=== PATIENT | female | born 1990 | race Caucasian/White ===

== ENCOUNTER → 2016-11-17 | Outpatient (CLI) | payer OTHER | LOC: M LAB 12:10 | PROVIDERS: ATTEND Specialist | DX: N91.2 Amenorrhea, unspecified (principal) ==

== ENCOUNTER → 2016-12-06 | Outpatient (CLI) | payer OTHER ==
[2016-12-06 13:04] LABS: BASO % 0.5 % (0.0-1.0); EOS # 0.1 K/mm3 (0.0-0.50); LARGE UNSTAINED CELL # 0.2 K/mm3 (0.0-0.4); LARGE UNSTAINED CELL % 3.8 % (0.0-4.0); LYMPH # 1.3 K/mm3 (1.5-6.5); LYMPH % 21.1 % (24.0-44.0); MEAN CORPUSCULAR HEMOGLOBIN 29.5 pg (27.0-33.0); MEAN CORPUSCULAR HGB CONC 34.8 g/dl (32.0-36.5); MEAN CORPUSCULAR VOLUME 84.7 fl (80.0-96.0); MONO # 0.3 K/mm3 (0.0-0.8); MONO % 5.7 % (0.0-5.0); NEUTROPHILS # 4.1 K/mm3 (1.8-7.7); NEUTROPHILS % 67.9 % (36.0-66.0); PLATELET COUNT, AUTOMATED 215 k/mm3 (150-450); RED CELL DISTRIBUTION WIDTH 11.9 % (11.5-14.5)
[2016-12-07 11:41] LABS: HBsAg Prenatal NEGATIVE (NEGATIVE)
== END ==
LOC: M LAB 12:15
PROVIDERS: ATTEND Specialist
DX: Z36 Encounter for antenatal screening of mother (principal)

== ENCOUNTER → 2017-02-22 | Outpatient (CLI) | payer OTHER | LOC: M LAB 10:13 | PROVIDERS: ATTEND Advanced Practice Midwife | DX: Z34.80 Encounter for supervision of other normal pregnancy, unspecified trimester (principal); Z3A.00 Weeks of gestation of pregnancy not specified ==

== ENCOUNTER → 2017-03-15 | Outpatient (REF) | payer OTHER | LOC: M LAB REF 12:38 | DX: J02.9 Acute pharyngitis, unspecified (principal) ==

== ENCOUNTER → 2017-04-27 | Outpatient (CLI) | payer OTHER ==
[2017-04-27 12:03] LABS: HEMOGLOBIN 11.1 g/dl (12.0-16.0); MEAN CORPUSCULAR HEMOGLOBIN 29.9 pg (27.0-33.0); MEAN CORPUSCULAR HGB CONC 33.6 g/dl (32.0-36.5); MEAN CORPUSCULAR VOLUME 88.9 fl (80.0-96.0); PLATELET COUNT, AUTOMATED 200 10^3/uL (150-450); RED BLOOD COUNT 3.71 10^6/uL (4.00-5.40); RED CELL DISTRIBUTION WIDTH 12.8 % (11.5-14.5); WHITE BLOOD COUNT 10.5 10^3/uL (4.0-10.0)
[2017-04-27 12:27] LABS: GLUCOSE CHALLENGE TEST 1 HOUR 96 MG/DL (LESS THAN 140)
== END ==
LOC: M LAB 10:06
DX: Z34.82 Encounter for supervision of other normal pregnancy, second trimester (principal)

== ENCOUNTER → 2017-07-07 | Outpatient (REF) | payer OTHER | LOC: M LAB REF 16:48 | DX: Z34.83 Encounter for supervision of other normal pregnancy, third trimester (principal) ==

== ENCOUNTER → 2017-10-06 | Outpatient (REF) | payer OTHER | LOC: M LAB REF 14:30 | DX: Z12.4 Encounter for screening for malignant neoplasm of cervix (principal) ==

== ENCOUNTER → 2018-10-15 | Outpatient (REF) | payer OTHER ==
[~2018-10-15] MED LIST: COLA100C5 PO; FOLI800C PO; IBUP-1114 PO; MAPA500T2 PO; PRENTAB9 PO; VALT500T PO
== END ==
LOC: M LAB REF 17:23
PROVIDERS: ATTEND Advanced Practice Midwife
DX: Z12.4 Encounter for screening for malignant neoplasm of cervix (principal)

== ENCOUNTER → 2018-12-07 | Outpatient (CLI) | payer OTHER ==
[2018-12-07 13:37] LABS: BASO % 0.3 % (0.0-1.0); EOS % 0.6 % (0.0-3.0); HEMATOCRIT 36.4 % (36.0-47.0); HEMOGLOBIN 12.3 g/dl (12.0-15.5); LYMPH # 1.4 10^3/uL (1.5-5.0); LYMPH % 20.9 % (24.0-44.0); MEAN CORPUSCULAR HEMOGLOBIN 29.1 pg (27.0-33.0); MEAN CORPUSCULAR HGB CONC 33.8 g/dl (32.0-36.5); MEAN CORPUSCULAR VOLUME 86.3 fl (80.0-96.0); MONO # 0.5 10^3/uL (0.0-0.8); MONO % 7.3 % (0.0-5.0); NEUTROPHILS # 4.8 10^3/uL (1.5-8.5); NEUTROPHILS % 70.6 % (36.0-66.0); PLATELET COUNT, AUTOMATED 217 10^3/uL (150-450); RED BLOOD COUNT 4.22 10^6/uL (4.00-5.40); WHITE BLOOD COUNT 6.8 10^3/uL (4.0-10.0)
[2018-12-07 15:37] LABS: CHLAMYDIA DNA AMPLIFICATION NEGATIVE (NEGATIVE); GC DNA AMPLIFICATION NEGATIVE (NEGATIVE)
[2018-12-07 21:22] LABS: HEPATITIS C VIRUS ABY INDEX 2.1 INDEX (<0.8); HIV 1&2 SCREEN CENTAUR NEGATIVE (NEGATIVE); RUBELLA IgG QUALITATIVE EQUIVOCAL (IMMUNE)
== END ==
LOC: M SMT 09:40
PROVIDERS: ATTEND Advanced Practice Midwife
DX: Z34.81 Encounter for supervision of other normal pregnancy, first trimester (principal)

== ENCOUNTER → 2019-02-04 | Outpatient (REF) | payer OTHER | LOC: M WUC 10:59 | PROVIDERS: ATTEND Advanced Practice Midwife | DX: Z34.80 Encounter for supervision of other normal pregnancy, unspecified trimester (principal); Z3A.09 9 weeks gestation of pregnancy ==

== ENCOUNTER → 2019-03-29 | Outpatient (CLI) | payer OTHER ==
[2019-03-29 10:43] LABS: HEMOGLOBIN 11.1 g/dl (12.0-15.5); MEAN CORPUSCULAR HEMOGLOBIN 29.3 pg (27.0-33.0); MEAN CORPUSCULAR HGB CONC 32.6 g/dl (32.0-36.5); MEAN CORPUSCULAR VOLUME 89.7 fl (80.0-96.0); PLATELET COUNT, AUTOMATED 184 10^3/uL (150-450); RED BLOOD COUNT 3.79 10^6/uL (4.00-5.40); WHITE BLOOD COUNT 8.5 10^3/uL (4.0-10.0)
== END ==
LOC: M PLALAB 08:37
PROVIDERS: ATTEND Obstetrics & Gynecology
DX: Z36.89 Encounter for other specified antenatal screening (principal)

== ENCOUNTER → 2019-05-27 | Outpatient (REF) | payer OTHER | LOC: M SFHCWAGY 17:00 | PROVIDERS: ATTEND Advanced Practice Midwife | DX: Z36.85 Encounter for antenatal screening for Streptococcus B (principal) ==

== ENCOUNTER 2019-06-17 20:20 | Inpatient (IN) | payer OTHER ==
[~2019-06-17] VITALS: Ht 167.6 cm; Wt 67.0 kg
[2019-06-17] MEDS ORDERED: LR 1,000 ML IV SCH (20:51)
[2019-06-17] MEDS ORDERED: PENICILLIN G POTASSIUM IV 5 MU in D5W MINI-BAG PLUS 100 ML IV STA (20:51)
[2019-06-17 21:20] LABS: HEMATOCRIT 33.1 % (36.0-47.0); HEMOGLOBIN 11.7 g/dl (12.0-15.5); MEAN CORPUSCULAR HEMOGLOBIN 30.6 pg (27.0-33.0); MEAN CORPUSCULAR HGB CONC 35.3 g/dl (32.0-36.5); MEAN CORPUSCULAR VOLUME 86.6 fl (80.0-96.0); PLATELET COUNT, AUTOMATED 192 10^3/uL (150-450); RED BLOOD COUNT 3.82 10^6/uL (4.00-5.40); WHITE BLOOD COUNT 18.5 10^3/uL (4.0-10.0)
[2019-06-17 21:22] VITALS: BP 108/72
--- NOTE | 2019-06-17 21:55 | HPE ---
DATE OF ADMISSION: 06/17/2019 Kaylan is a 28-year-old, 2, para 1-0-0-1 at 38-4/7 weeks gestation, estimated date of confinement (EDC) of 06/27/2019 based on last menstrual period and confirmed by first trimester ultrasound. She presents to labor and delivery today with report of onset of uncomfortable contractions at approximately 1500 hours that have become progressively more painful and closer together. She does report some scant bloody show. Denies leakage of fluid. The fetus has been active. Her care was initiated at [facility] in the first trimester. 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 OBSTETRICAL HISTORY: July 2017: 39 weeks gestation, 7 pounds 5 ounce male, spontaneous vaginal delivery. No complications. OBSTETRIC LABS: O+, antibody screen negative. Pap normal, rubella equivocal, VDRL nonreactive. Urine culture no growth. Hepatitis B surface antigen negative, HIV negative. Hepatitis C antibody nonreactive. Gonorrhea and chlamydia negative. The quad screen was negative for aneuploidy. Diabetic gestational screening was 85 and her GBS is positive. PAST MEDICAL HISTORY: Anemia. HSV. depression and anxiety. Childhood varicella. SURGERIES: [place] tooth extraction. FAMILY HISTORY: Atrial fibrillation, polycythemia and congestive heart failure. SOCIAL HISTORY: The patient is . She is employed as a nurse. She is a nonsmoker. She denies alcohol and drug use. A history of HSV. No history of abuse - physical, sexual or emotional. ALLERGIES: No known drug allergies. CURRENT MEDICATIONS: vitamins and Valtrex 500 mg by mouth twice a day. OBJECTIVE: Temperature 97.6, respirations 18, blood pressure not recorded. She is alert and oriented times three. She does appear mildly uncomfortable with her contractions. She is focusing and deep breathing. heart rate is 150 with moderate variability, positive accelerations, negative decelerations. Contractions are every 2 minutes. They do palpate moderate. Sterile vaginal exam: 3 cm dilated, 80% effaced, zero station, mid position, and positive show. Her abdomen is gravid, cephalic presentation. Estimated weight 7 pounds. ASSESSMENT: Intrauterine at 38-4/7 weeks. heart rate category one, labor. PLAN: Admit the patient to labor and delivery. Saline lock. Start IV antibiotics for GBS prophylaxis. Routine labs. Out of bed ad yaneth. Clear liquid diet. At this time, the patient plans on coping with her labor physiologically. May consider artificial rupture of membranes (AROM) and IV Pitocin for labor augmentation if needed. I do anticipate labor progress and a spontaneous vaginal delivery. The patient has been verbally consented for emergency surgery and blood products if they are necessary.
[2019-06-18] MEDS ORDERED: OXYTOCIN 30 UNITS IN 0.9% NaCl 500ML IV BAG (J2590) As Ordered ONE ×2 (00:12→01:25)
[2019-06-18] MEDS ORDERED: PENICILLIN G POTASSIUM IV 2.5 MU in IV 1 EA IV SCH (01:00)
[2019-06-18 01:45] VITALS: BP 118/76
[2019-06-18] MEDS ORDERED: RHOGAM 300 MCG (1500 IU) INJ (J2790) IM SCH (02:00)
[2019-06-18] MEDS ORDERED: MEASLES,MUMPS,RUBELLA VACCINE INJ (MMR-II) (90707) SC SCH (02:00)
[2019-06-18] MEDS ORDERED: DOCUSATE SODIUM 100 MG CAP PO PRN (02:00)
[2019-06-18] MEDS ORDERED: METHYLERGONOVINE MALEATE 0.2 MG TAB PO PRN (02:00)
[2019-06-18] MEDS ORDERED: DIBUCAINE 1% OINTMENT 30GM TOP PRN (02:00)
[2019-06-18] MEDS ORDERED: ACETAMINOPHEN TAB 650MG DOSE (2X325MG) PO PRN (02:00)
[2019-06-18] MEDS ORDERED: IBUPROFEN 600 MG TAB PO PRN (02:00)
[2019-06-18 02:12] VITALS: BP 114/70
[2019-06-18] MEDS ORDERED: OXYTOCIN DRIP 30 UNITS in IV 1 EA IV ONE (02:15)
[2019-06-18 02:56] VITALS: BP 108/66
[2019-06-18 03:35] VITALS: BP 109/59
[2019-06-18 05:44] VITALS: BP 115/68
--- NOTE | 2019-06-18 06:22 | DN ---
DATE: 06/18/2019 Kaylan is a 28-year-old, 2, para 2-0-0-2 now, who was admitted to labor and delivery in active labor. Her labor progressed under its own power. She coped with her labor physiologically. She had assisted rupture of membranes for a moderate amount of clear odorless fluid at 0117. She reached complete dilation at 0127. She pushed to a normal spontaneous vaginal delivery of a live male in right occiput anterior (LUCERO) position with restitution to right occiput transverse (ROT) position at 0129. There was no nuchal cord. The shoulders delivered spontaneously and the corpus immediately followed. The was placed on the maternal abdomen crying and active. His mouth and nares were bulb suctioned. The cord was clamped times two once pulsations ceased and was cut by the father of the baby under my direction. Cord blood was obtained. Spontaneous expulsion of an intact placenta with three-vessel cord by Newman mechanism was at 0136. Uterine hemostasis achieved with IV Pitocin rapid infusion and uterine fundal massage. Estimated blood loss 200 mL. Perineum and vagina inspected and noted to be intact. The male weighed 6 pounds 8 ounces, 2940 grams, 8 and 9. Mom is going to breastfeed her son and the family have named him Sang. At the close of delivery, lap counts and instrument counts were correct and verified.
[2019-06-18] MEDS: ACETAMINOPHEN 500 MG TAB PO PRN ×2 (07:46→17:22)
[2019-06-18] MEDS: PRENATAL VITAMINS CHEWABLE TABLET PO SCH (10:40)
[2019-06-18] MEDS: SERTRALINE HCL 25 MG TABLET PO SCH (10:40)
[2019-06-18] MEDS: IBUPROFEN 800 MG TAB PO PRN ×2 (10:41→18:15)
[2019-06-18 18:35] VITALS: BP 124/75
[2019-06-19] MEDS: IBUPROFEN 800 MG TAB PO PRN (02:42)
[2019-06-19 06:00] VITALS: BP 119/66
[2019-06-19] MEDS ORDERED: SERT25TA21 PO (08:32)
[2019-06-19] MEDS: PRENATAL VITAMINS CHEWABLE TABLET PO SCH (08:54)
[2019-06-19] MEDS: SERTRALINE HCL 25 MG TABLET PO SCH (08:54)
[2019-06-19] MEDS: ACETAMINOPHEN 500 MG TAB PO PRN (08:59)
== END 2019-06-19 12:15 | disposition home or self-care (01) | DRG 807 ==
LOC: M LDO 20:20 → M LDI 20:47 → M OBS 06-18 03:27
PROVIDERS: ADMIT Advanced Practice Midwife; ATTEND Advanced Practice Midwife
PROC: 10E0XZZ Delivery of Products of Conception, External Approach (ICD-10-PCS; principal; 2019-06-18)
PROC: 10907ZC Drainage of Amniotic Fluid, Therapeutic from Products of Conception, Via Natural or Artificial Opening (ICD-10-PCS; 2019-06-18)
DX: O99.284 Endocrine, nutritional and metabolic diseases complicating childbirth (principal); Z37.0 Single live birth; Z3A.38 38 weeks gestation of pregnancy

== ENCOUNTER → 2020-01-21 | Outpatient (CLI) | payer OTHER ==
[~2020-01-21] MED LIST changes: +SERT25TA21 PO
== END ==
LOC: M LABSMTC 10:47
PROVIDERS: ATTEND Pediatrics
DX: Z20.828 Contact with and (suspected) exposure to other viral communicable diseases (principal)

== ENCOUNTER → 2020-03-06 | Outpatient (CLI) | payer SELFPAY | LOC: M LABSMTC 11:01 | PROVIDERS: ATTEND Pediatrics | DX: Z20.828 Contact with and (suspected) exposure to other viral communicable diseases (principal) ==

== ENCOUNTER → 2020-04-06 | Outpatient (REF) | payer OTHER ==
[2020-04-06 12:43] LABS: HEMATOCRIT 38.4 % (36.0-47.0); HEMOGLOBIN 12.6 g/dl (12.0-15.5); MEAN CORPUSCULAR HEMOGLOBIN 28.6 pg (27.0-33.0); MEAN CORPUSCULAR HGB CONC 32.8 g/dl (32.0-36.5); MEAN CORPUSCULAR VOLUME 87.3 fl (80.0-96.0); PLATELET COUNT, AUTOMATED 204 10^3/uL (150-450)
[2020-04-06 15:24] LABS: CHLAMYDIA DNA AMPLIFICATION NEGATIVE (NEGATIVE); GC DNA AMPLIFICATION NEGATIVE (NEGATIVE)
[2020-04-06 15:30] LABS: HEPATITIS C VIRUS ABY INDEX < 0.0 INDEX (<0.8); HIV 1&2 SCREEN CENTAUR NEGATIVE (NEGATIVE)
== END ==
LOC: M PLALAB 10:13
PROVIDERS: ATTEND Advanced Practice Midwife
DX: Z34.91 Encounter for supervision of normal pregnancy, unspecified, first trimester (principal)

== ENCOUNTER → 2020-04-27 | Outpatient (CLI) | payer OTHER | LOC: M PLALAB 09:24 | PROVIDERS: ATTEND Advanced Practice Midwife | DX: Z34.81 Encounter for supervision of other normal pregnancy, first trimester (principal) ==

== ENCOUNTER → 2020-08-11 | Outpatient (REF) | payer OTHER ==
[2020-08-11 14:11] LABS: HEMATOCRIT 33.3 % (36.0-47.0); HEMOGLOBIN 10.8 g/dl (12.0-15.5); MEAN CORPUSCULAR HEMOGLOBIN 29.7 pg (27.0-33.0); MEAN CORPUSCULAR HGB CONC 32.4 g/dl (32.0-36.5); MEAN CORPUSCULAR VOLUME 91.5 fl (80.0-96.0); PLATELET COUNT, AUTOMATED 199 10^3/uL (150-450); RED BLOOD COUNT 3.64 10^6/uL (4.00-5.40); WHITE BLOOD COUNT 8.9 10^3/uL (4.0-10.0)
== END ==
LOC: M PLALAB 08:21
PROVIDERS: ATTEND Advanced Practice Midwife
DX: Z36.89 Encounter for other specified antenatal screening (principal)

== ENCOUNTER → 2020-09-04 | Outpatient (CLI) | payer OTHER ==
--- NOTE | 2020-09-06 08:19 | REP ---
INDICATION: GROWTH AND EFW SIZE LESS THAN DATES COMPARISON: None. TECHNIQUE: Transabdominal obstetrical ultrasound with color Doppler evaluation. FINDINGS: Examination demonstrates a single live intrauterine in cephalic presentation. motion is identified by technologist. Placenta is noted anterior and grade 1 without evidence for placenta previa or abruption. Amniotic fluid volume is normal. Cervix measures 4.3 cm in length and appears closed. No evidence for nuchal cord. Selected gestational age: 29 weeks 1 day with BARTOLOME 11/19/2020. Gestational age by current measurements 29 weeks 5 days with BARTOLOME 11/15/2020. FHR equals 139 beats per minute. BPD: 7.5 cm at 30 weeks 0 days HC: 27.5 cm at 30 weeks 0 days AC: 25.1 cm at 29 weeks 2 days FL: 5.6 cm at 29 weeks 3 days HL: 5.1 cm at 29 weeks 6 days HC/AC: 1.10 Estimated weight 1398 grams (49thpercentile). ALISHA: 11.1 cm IMPRESSION: Single live intrauterine demonstrating appropriate estimated weight period ALISHA normal. <Electronically signed by Wyatt Chowdary > 09/06/20 [id number]
== END ==
LOC: M WHC 08:57
PROVIDERS: ATTEND Advanced Practice Midwife
DX: O26.849 Uterine size-date discrepancy, unspecified trimester (principal); Z3A.29 29 weeks gestation of pregnancy

== ENCOUNTER → 2020-10-23 | Outpatient (CLI) | payer OTHER ==
[~2020-10-23] VITALS: Ht 167.6 cm; Wt 71.7 kg
[~2020-10-23] MED LIST changes: +BETAMETHASONE SOLUSPAN 6MG/ML 5ML VIAL (J0702 PER 3MG) IM SCH; +HOME MED LIST COMPLETE! XX SCH; +VALA500T5 PO
[2020-10-23 00:40] VITALS: BP 118/74
[2020-10-23 01:46] LABS: APPEARANCE, URINE CLEAR (CLEAR); BACTERIA, URINE AUTO NEGATIVE (NEGATIVE); BILIRUBIN, URINE AUTO NEGATIVE (NEGATIVE); BLOOD, URINE BLOOD NEGATIVE (NEGATIVE); COLOR, URINE YELLOW (YELLOW); GLUCOSE, URINE (UA) AUTO NEGATIVE (NEGATIVE); KETONE, URINE AUTO NEGATIVE (NEGATIVE); LEUKOCYTE ESTERASE, URINE AUTO NEGATIVE (NEGATIVE); NITRITE, URINE AUTO NEGATIVE (NEGATIVE); PROTEIN, URINE AUTO NEGATIVE (NEGATIVE); RBC, URINE AUTO 1 /HPF (0-3); SPECIFIC GRAVITY URINE AUTO 1.018 (1.002-1.035); SQUAMOUS EPITHELIAL CELL UR AU 4 /HPF (0-6); UROBILINOGEN, URINE AUTO 0.2 mg/dL (0.0-2.0); WBC, URINE AUTO 1 /HPF (0-3)
[2020-10-23 01:56] VITALS: BP 119/76
== END ==
LOC: M LDO 00:13
PROVIDERS: ATTEND Advanced Practice Midwife
DX: O60.03 Preterm labor without delivery, third trimester (principal); Z3A.36 36 weeks gestation of pregnancy; Z86.59 Personal history of other mental and behavioral disorders
CPT/HCPCS: 59025; 81001; 87081; 87086; 87186; G0378; G0463; J0702

== ENCOUNTER 2020-10-24 06:35 | Outpatient (CLI) | payer OTHER ==
[~2020-10-24 06:35] MED LIST changes: -BETAMETHASONE SOLUSPAN 6MG/ML 5ML VIAL (J0702 PER 3MG) IM SCH; -HOME MED LIST COMPLETE! XX SCH
[2020-10-24] MEDS ORDERED: BETAMETHASONE SOLUSPAN 6MG/ML 5ML VIAL (J0702 PER 3MG) IM ONE (06:55)
== END 2020-10-24 06:50 | disposition home or self-care (01) ==
LOC: M LDO 06:35
PROVIDERS: ATTEND Obstetrics & Gynecology
DX: O60.03 Preterm labor without delivery, third trimester (principal); Z3A.36 36 weeks gestation of pregnancy; Z86.59 Personal history of other mental and behavioral disorders; Z88.8 Allergy status to other drugs, medicaments and biological substances
CPT/HCPCS: 96372; G0378; G0463; J0702

== ENCOUNTER 2020-11-06 17:12 | Inpatient (IN) | payer OTHER ==
[2020-11-06] VITALS (10 sets, daily range): BP systolic 106–139; BP diastolic 63–87
[~2020-11-06] VITALS: Ht 167.6 cm; Wt 71.1 kg
[2020-11-06] MEDS ORDERED: HOME MED LIST COMPLETE! XX SCH (17:35)
[2020-11-06] MEDS ORDERED: PENICILLIN G POTASSIUM IV 5 MU in D5W MINI-BAG PLUS 100 ML IV STA (17:38)
[2020-11-06] MEDS ORDERED: OXYTOCIN INJ 10 UNITS/ML VIAL (J2590) IM PRN (17:40)
[2020-11-06] MEDS ORDERED: OXYTOCIN DRIP 30 UNITS in IV 1 EA IV PRN ×4 (17:40)
[2020-11-06] MEDS ORDERED: LIDOCAINE 1% MDV 20ML VIAL INFIL PRN (17:40)
[2020-11-06] MEDS ORDERED: LR 1,000 ML IV SCH (17:40)
[2020-11-06] MEDS ORDERED: METHYLERGONOVINE MALEATE 0.2 MG/ML VIAL (J2210) IM PRN (17:40)
[2020-11-06 18:05] LABS: HEMATOCRIT 33.6 % (36.0-47.0); HEMOGLOBIN 11.6 g/dl (12.0-15.5); MEAN CORPUSCULAR HEMOGLOBIN 30.1 pg (27.0-33.0); MEAN CORPUSCULAR HGB CONC 34.5 g/dl (32.0-36.5); MEAN CORPUSCULAR VOLUME 87.3 fl (80.0-96.0); PLATELET COUNT, AUTOMATED 174 10^3/uL (150-450); RED BLOOD COUNT 3.85 10^6/uL (4.00-5.40); WHITE BLOOD COUNT 15.3 10^3/uL (4.0-10.0)
--- NOTE | 2020-11-06 19:26 | HPE ---
HISTORY AND PHYSICAL DATE OF ADMISSION: 11/06/2020 SUBJECTIVE: Binta is a 30-year-old 3, para 2-0-0-1 at 38 and 1/7 weeks with an EDC of 11/19/2020 based on first trimester ultrasound. She presents to Labor and Delivery today with report of onset of uncomfortable contractions earlier this afternoon and reports them about every 4-7 minutes. She reports some bloody show, denies leakage of fluid. The fetus has been active. [facility] care was [facility] in the first trimester. 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 She has been taking Valtrex prophylactically since about 34 weeks. She has a history of an infant born with congenital heart defect who of cardiac arrest at 3 months old. She has had two echocardiograms for this that have returned normal results. OBSTETRIC HISTORY: 1. July 2017, 39 weeks, 7 pounds 5 ounces male, vaginal delivery, uncomplicated. 2. June 18, 2019, 38 weeks, 6 pounds 8 ounces male, vaginal delivery, uncomplicated vaginal delivery. 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 OBSTETRIC LABORATORY: O positive. Antibody screen negative. Syphilis nonreactive. Gonorrhea and chlamydia negative. Hepatitis B negative. Hepatitis C negative. HIV negative. Rubella immune. Urine culture showed no growth. GBS is positive. PAST MEDICAL HISTORY: 1. depression. 2. Anxiety. 3. Anemia. SURGERIES: [place] tooth extraction. FAMILY HISTORY: Congenital heart defect, heart disease, kidney disease. SOCIAL HISTORY: The patient is . She is a nonsmoker, denies alcohol and drug use. 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 She denies history of abuse, physical, sexual, and emotional. ALLERGIES: SUNSCREEN. CURRENT MEDICATIONS: 1. Valtrex 500 mg p.o. b.i.d. 2. vitamin. OBJECTIVE: BP 128/87. She is alert and oriented x3. She does appear uncomfortable with her contractions. heart rate is 150 with moderate variability, positive accelerations, negative decelerations. Contractions are every 2-4 minutes. They palpate moderate. Abdomen is gravid, cephalic presentation. Estimate weight of 7 pounds. Sterile vaginal exam: 5 cm dilated, 80% effaced, -2 station. ASSESSMENT: 1. Intrauterine at 38 and 1/7 weeks. 2. heart rate category 1. 3. Labor. PLAN: 1. Admit patient to labor and delivery. 2. Routine laboratories. 3. Saline lock. 4. Start antibiotics for GBS prophylaxis. 5. Once she has been appropriately treated, we will perform assisted rupture of membranes to augment her labor, and anticipate a normal spontaneous vaginal delivery. 6. The patient has been verbally consented for emergency surgery and blood products if they are necessary.
[2020-11-06] MEDS ORDERED: ANUSOL HC CREAM 30GM TOP PRN (19:55)
[2020-11-06] MEDS ORDERED: ACETAMINOPHEN TAB 650MG DOSE (2X325MG) PO PRN (19:55)
[2020-11-06] MEDS ORDERED: METHYLERGONOVINE MALEATE 0.2 MG TAB PO PRN (19:55)
[2020-11-06] MEDS ORDERED: RHOGAM 300 MCG (1500 IU) INJ (J2790) IM SCH (19:55)
[2020-11-06] MEDS ORDERED: MEASLES,MUMPS,RUBELLA VACCINE INJ (MMR-II) (90707) SC SCH (19:55)
[2020-11-06] MEDS ORDERED: DIBUCAINE 1% OINTMENT 30GM TOP PRN (19:55)
[2020-11-06] MEDS ORDERED: DOCUSATE SODIUM 100MG CAPSULE PO PRN (19:55)
[2020-11-06] MEDS ORDERED: IBUPROFEN 600MG TAB PO PRN (19:55)
--- NOTE | 2020-11-06 20:11 | DN ---
DELIVERY NOTE DATE OF DELIVERY: 11/06/2020 Kaylan is a 30-year-old 3, para 3-0-0-2 now, admitted to labor and delivery in active labor. She coped with her labor physiologically. She had assisted rupture of membranes at 1915. She was completely dilated at 192. She pushed to a normal spontaneous vaginal delivery of a live male in OA position with restitution to ROT position at 192. There was no nuchal cord. Shoulders delivered spontaneously, and the corpus immediately followed. The male's mouth and nares were bulb suctioned, and he was placed on the maternal abdomen crying and active. The cord was clamped times two once pulsations ceased and cut by the father of the baby under my direction. A spontaneous expulsion of an intact placenta with 3-vessel cord by Schultze mechanism was at 1934. Uterine hemostasis was achieved with intravenous (IV) Pitocin rapid infusion and uterine fundal massage. Estimated blood loss was 300 mL. Perineum and vagina noted to be intact. male weight is pending. scores are 9 and 9. Mom is going to breast-feed her son, and the family have named him Oneil. At the close of delivery, lap counts and instruments counts were correct and verified. [facility]
[2020-11-06] MEDS ORDERED: PENICILLIN G POTASSIUM IV 2.5 MU in IV 1 EA IV SCH (22:00)
[2020-11-07] MEDS: ACETAMINOPHEN 500 MG TAB PO PRN ×3 (00:55→19:56)
[2020-11-07] MEDS: IBUPROFEN 800 MG TAB PO PRN ×2 (05:47→13:49)
[2020-11-07 06:57] VITALS: BP 117/72
--- NOTE | 2020-11-07 07:35 | IPNPDOC ---
Text Note Date of Service The patient was seen on 11/07/20. NOTE PP #1 Feels well. Happy. on demand. Reports backache VSS, afebrile normotensive Breasts soft, nipples intact Fundus firm, NT, down 1 FB Lochia rubra light without odor Perineum intact PP #1 Routine Care. K pad. Anticipate D/C in am VS,Fishbone, I+O VS, Fishbone, I+O Laboratory Tests 11/06/20 17:51 Vital Signs Date Time Temp Pulse Resp B/P (MAP) Pulse Ox O2 Delivery O2 Flow Rate FiO2 11/07/20 06:57 97.3 65 20 117/72 (87) 11/06/20 22:17 97 I&O- Last 24 Hours up to 6 AM 11/07/20 06:00 Output Total 300 ml Balance -300 ml Priyanka Hanson CNM Nov 07, 2020 07:35
[2020-11-07] MEDS: PRENATAL VITAMINS CHEWABLE TABLET PO SCH (08:18)
[2020-11-07] MEDS ORDERED: SERTRALINE HCL 50 MG TAB PO SCH (09:00)
[2020-11-08] MEDS: IBUPROFEN 800 MG TAB PO PRN ×2 (00:47→08:50)
[2020-11-08] MEDS: ACETAMINOPHEN 500 MG TAB PO PRN (03:35)
[2020-11-08 05:47] VITALS: BP 118/67
[2020-11-08] MEDS: PRENATAL VITAMINS CHEWABLE TABLET PO SCH (08:50)
--- NOTE | 2020-11-08 11:33 | IPNPDOC ---
Progress Note Date of Service: Nov 08, 2020 Day#: 2 Progress Note SUBJECT: Status post . She has been ambulating, voiding spontaneously with out issue and tolerating regular diet. Lochia decreasing/minimal. Pain is well- controlled. Denies headache, visual changes, right upper quadrant pain, shortness breath or chest pain. OBJECTIVE: VITAL SIGNS: Within normal limits, afebrile. Alert and oriented times three. Abdomen: Fundus firm at U-2. Soft, NTTP. ASSESSMENT: Status post uncomplicated spontaneous vaginal delivery. Vitals within normal limits, afebrile, hemodynamically stable with no evidence of infection. PLAN: Discharge to home today. Tylenol and Motrin for pain. Routine instructions/precautions reviewed. Routine PP visit in 6 weeks in clinic. VS, I&O, 24H, Fishbone Vital Signs/I&O Vital Signs Date Time Temp Pulse Resp B/P (MAP) Pulse Ox O2 Delivery O2 Flow Rate FiO2 11/08/20 05:47 98.5 71 16 118/67 (84) 11/06/20 22:17 97 JOSÉ MIGUEL GRADY DO Nov 08, 2020 11:33
== END 2020-11-08 12:10 | disposition home or self-care (01) | DRG 807 ==
LOC: M LDO 17:12 → M LDI 17:36 → M OBS 22:11
PROVIDERS: ADMIT Advanced Practice Midwife; ATTEND Advanced Practice Midwife
PROC: 10E0XZZ Delivery of Products of Conception, External Approach (ICD-10-PCS; principal; 2020-11-06)
DX: O98.52 Other viral diseases complicating childbirth (principal); Z37.0 Single live birth; Z3A.38 38 weeks gestation of pregnancy; B00.9 Herpesviral infection, unspecified

== ENCOUNTER → 2022-04-11 | Outpatient (REF) | payer OTHER | LOC: M SFHCWAGY 16:50 | PROVIDERS: ATTEND Advanced Practice Midwife | DX: Z12.4 Encounter for screening for malignant neoplasm of cervix (principal) ==

== ENCOUNTER → 2022-04-13 | Outpatient (REF) | LOC: M LABSMTC 10:11 | PROVIDERS: ATTEND Family Medicine | DX: Z11.52 Encounter for screening for COVID-19 (principal) ==

== ENCOUNTER → 2022-08-03 | Outpatient (CLI) | payer OTHER | LOC: M LAB 16:17 | PROVIDERS: ATTEND Advanced Practice Midwife | DX: O20.0 Threatened abortion (principal) ==

== ENCOUNTER → 2022-08-05 | Outpatient (CLI) | payer OTHER | LOC: M LAB 16:24 | PROVIDERS: ATTEND Advanced Practice Midwife | DX: O20.0 Threatened abortion (principal); Z3A.00 Weeks of gestation of pregnancy not specified ==

== ENCOUNTER → 2022-08-29 | Outpatient (CLI) | payer OTHER | LOC: M RAD 07:38 | PROVIDERS: ATTEND Advanced Practice Midwife | DX: O20.9 Hemorrhage in early pregnancy, unspecified (principal); Z3A.08 8 weeks gestation of pregnancy ==

== ENCOUNTER → 2022-08-29 | Outpatient (CLI) | payer OTHER ==
[2022-08-29 14:36] LABS: HEMATOCRIT 36.4 % (36.0-47.0); HEMOGLOBIN 12.1 g/dl (12.0-15.5); MEAN CORPUSCULAR HEMOGLOBIN 28.9 pg (27.0-33.0); MEAN CORPUSCULAR HGB CONC 33.2 g/dl (32.0-36.5); MEAN CORPUSCULAR VOLUME 86.9 fl (80.0-96.0); PLATELET COUNT, AUTOMATED 252 10^3/uL (150-450); RED BLOOD COUNT 4.19 10^6/uL (4.00-5.40); WHITE BLOOD COUNT 8.2 10^3/uL (4.0-10.0)
[2022-08-29 15:08] LABS: HIV 1&2 SCREEN NEGATIVE (NEGATIVE)
[2022-08-29 15:16] LABS: HEPATITIS C VIRUS ABY INDEX 0.1 INDEX (<0.8)
[2022-08-29 16:15] LABS: GC DNA AMPLIFICATION NEGATIVE (NEGATIVE)
== END ==
LOC: M PLALAB 09:48
PROVIDERS: ATTEND Advanced Practice Midwife
DX: Z34.91 Encounter for supervision of normal pregnancy, unspecified, first trimester (principal)

== ENCOUNTER → 2023-01-02 | Outpatient (REF) | LOC: M EMP 08:11 | PROVIDERS: ATTEND Family Medicine | DX: Z11.52 Encounter for screening for COVID-19 (principal) ==

== ENCOUNTER → 2023-01-16 | Outpatient (REF) | payer OTHER | LOC: M LAB REF 16:39 | PROVIDERS: ATTEND Student in an Organized Health Care Education/Training Program | DX: J02.9 Acute pharyngitis, unspecified (principal) ==

== ENCOUNTER → 2023-02-28 | Outpatient (CLI) | payer OTHER ==
[2023-03-04 00:06] LABS: ANTI PARVO VIRUS LEVEL IGG 2.2 index (0.0-0.8); ANTI PARVO VIRUS LEVEL IgM 0.2 index (0.0-0.8); RUBEOLA IgG ANTIBODY 59.5 AU/mL (Immune >16.4)
== END ==
LOC: M LAB 11:14
PROVIDERS: ATTEND Advanced Practice Midwife
DX: Z34.93 Encounter for supervision of normal pregnancy, unspecified, third trimester (principal)

== ENCOUNTER → 2023-03-02 | Outpatient (CLI) | payer OTHER | LOC: M WHC 11:52 | PROVIDERS: ATTEND Advanced Practice Midwife | DX: O26.843 Uterine size-date discrepancy, third trimester (principal); Z3A.35 35 weeks gestation of pregnancy ==

== ENCOUNTER → 2024-03-25 | Outpatient (REF) | payer OTHER ==
[2024-03-27 15:17] LABS: HPV APTIMA Not Detected (Not Detected)
== END ==
LOC: M SFHCWAGY 10:25
PROVIDERS: ATTEND Advanced Practice Midwife
DX: Z01.419 Encounter for gynecological examination (general) (routine) without abnormal findings (principal); Z77.9 Other contact with and (suspected) exposures hazardous to health
CPT/HCPCS: 87624; G0123

== ENCOUNTER → 2024-08-08 | Outpatient (CLI) | payer OTHER | LOC: M WUC 15:19 | PROVIDERS: ATTEND Registered Nurse | DX: M25.541 Pain in joints of right hand (principal) ==

== ENCOUNTER → 2025-02-25 | Outpatient (REF) | payer OTHER ==
[2025-02-25 16:19] LABS: APPEARANCE, URINE CLEAR (CLEAR); BACTERIA, URINE AUTO NEGATIVE (NEGATIVE); BILIRUBIN, URINE AUTO NEGATIVE (NEGATIVE); BLOOD, URINE BLOOD NEGATIVE (NEGATIVE); GLUCOSE, URINE (UA) AUTO NEGATIVE (NEGATIVE); KETONE, URINE AUTO NEGATIVE (NEGATIVE); LEUKOCYTE ESTERASE, URINE AUTO NEGATIVE (NEGATIVE); MUCUS, URINE SMALL (NEGATIVE); NITRITE, URINE AUTO NEGATIVE (NEGATIVE); PROTEIN, URINE AUTO NEGATIVE (NEGATIVE); RBC, URINE AUTO 1 /HPF (0-3); SPECIFIC GRAVITY URINE AUTO 1.024 (1.002-1.035); SQUAMOUS EPITHELIAL CELL UR AU 1 /HPF (0-6); UROBILINOGEN, URINE AUTO 0.2 mg/dL (0.0-2.0); WBC, URINE AUTO 0 /HPF (0-3)
[2025-02-25 16:40] LABS: TOTAL PROTEIN,RANDOM URINE 10.9 MG/DL (0.0-14.0)
== END ==
LOC: M SFHCRHEU 11:10
PROVIDERS: ATTEND Internal Medicine
DX: I73.00 Raynaud's syndrome without gangrene (principal); R53.83 Other fatigue; M25.50 Pain in unspecified joint

== ENCOUNTER → 2025-02-25 | Outpatient (CLI) | payer OTHER ==
[2025-02-25 13:53] LABS: BASO # 0.0 10^3/uL (0.0-0.2); BASO % 0.5 % (0.0-1.0); EOS # 0.0 10^3/uL (0.0-0.5); EOS % 0.3 % (0.0-3.0); LYMPH # 1.2 10^3/uL (1.5-5.0); LYMPH % 15.9 % (24.0-44.0); MONO # 0.4 10^3/uL (0.0-0.8); MONO % 4.6 % (2.0-8.0); NEUTROPHILS # 6.0 10^3/uL (1.5-8.5); NEUTROPHILS % 78.4 % (36.0-66.0); PLATELET COUNT, AUTOMATED 246 10^3/uL (150-450)
[2025-02-25 14:27] LABS: C REACTIVE PROTEIN QUANTITATIV < 0.50 MG/DL (<1.0); COMPLEMENT C4 26.8 MG/DL (12-36)
[2025-02-25 14:28] LABS: FREE T4 1.13 NG/DL (0.89-1.76); IRON (FE) 94 UG/DL (50-170); PERCENT SATURATION 31.1 % (13.2-45.0); VITAMIN B12 LEVEL 569 PG/ML (211-911)
[2025-02-25 14:38] LABS: ALT/SGPT 10 U/L (7.0-40); AST/SGOT 17 U/L (<34); CALCIUM LEVEL 9.4 MG/DL (8.5-10.1); CARBON DIOXIDE LEVEL 28 MMOL/L (20-31); CHLORIDE LEVEL 104 MMOL/L (98-107); CREATININE FOR GFR 0.65 MG/DL (0.55-1.30); GLOMERULAR FILTRATION RATE > 90.0 (>60); MAGNESIUM LEVEL 1.9 MG/DL (1.8-2.4); PHOSPHORUS LEVEL 4.2 MG/DL (2.5-4.9); POTASSIUM SERUM 4.1 MMOL/L (3.5-5.1); SODIUM LEVEL 140 MMOL/L (136-145); TOTAL 25(OH) VITAMIN D 37.8 NG/ML (20.0-100.0)
[2025-03-02 15:13] LABS: COMPLEMENT TOTAL (CH50) 56 U/mL (31-60)
[2025-03-03 07:48] LABS: VITAMIN B2 (RIBOFLAVIN) 13.1 nmol/L (6.2-39.0)
[2025-03-03 17:48] LABS: VITAMIN B6,PYRIDOXAL PHOSPHATE 16.1 ng/mL (2.1-21.7)
[2025-03-04 07:22] LABS: PTT-LA 36 sec (<=40)
[2025-03-04 09:58] LABS: VITAMIN C, ASCORBIC ACID 0.8 mg/dL (0.3-2.7)
[2025-03-04 17:38] LABS: VITAMIN B1 LEVEL WHOLE BLOOD 196 nmol/L (78-185)
[2025-03-06 09:24] LABS: VITAMIN B7 (BIOTIN) 1382.7 pg/mL (221.0-3004.0)
== END ==
LOC: M RAD 12:22
PROVIDERS: ATTEND Internal Medicine
DX: I73.00 Raynaud's syndrome without gangrene (principal)